=== PATIENT | female | born 1950 | race Caucasian/White ===

== ENCOUNTER 2017-10-01 09:37 | Inpatient (IN) | payer OTHER ==
[~2017-10-01 09:37] MED LIST: LIDOCAINE 2% (SDV) 5 ML INJ; PROPOFOL 200 MG INJ
[2017-10-01] MEDS ORDERED: ROPIVACAINE 0.5 % 30 ML VIAL (09:57)
[2017-10-01] MEDS ORDERED: MIDAZOLAM 1 MG/ML 2 ML INJ (10:00)
[2017-10-01] MEDS ORDERED: CEFAZOLIN 1 GM INJ (10:05)
[2017-10-01] MEDS ORDERED: ROCURONIUM 50 MG INJ (10:05)
[2017-10-01] MEDS: LACTATED RINGER'S 1,000 ML IV* (12:00)
[2017-10-01] MEDS: TRANEXAMIC ACID 1,000 MG in DEXTROSE 5% 100 ML IV ×2 (12:25→13:08)
[2017-10-01] MEDS: CEFAZOLIN 2 GM/50 ML (PMX) 50 ML IVPB (12:45)
[2017-10-01] MEDS ORDERED: BETHANECHOL 25 MG TAB PO (13:00)
[2017-10-01] MEDS ORDERED: ONDANSETRON 4 MG INJ IV (13:00)
[2017-10-01] MEDS ORDERED: NA PHOSPHATE/BIPHOS 133 ML ENEMA PR (13:00)
[2017-10-01] MEDS ORDERED: HYDROCODONE/APAP (5/325) TAB PO (13:00)
[2017-10-01] MEDS ORDERED: MAGNESIUM HYDROXIDE 30ML CUP PO (13:00)
[2017-10-01] MEDS: CEFAZOLIN 1 GM/50 ML (PMX) 50 ML IVPB ×2 (13:00→21:10)
[2017-10-01] MEDS ORDERED: NACL 0.9% 3 ML SYG IV (13:00)
[2017-10-01] MEDS ORDERED: BISACODYL 10 MG SUPP PR (13:00)
[2017-10-01] MEDS: BACITRACIN 50000 UNITS INJ (13:05)
[2017-10-01] MEDS: POLYMYXIN B 500000 UNIT INJ (13:06)
[2017-10-01] MEDS ORDERED: SUGAMMADEX SODIUM 200 MG/2 ML VIAL IV (14:10)
[2017-10-01] MEDS ORDERED: ONDANSETRON 4 MG INJ (14:14)
[2017-10-01] MEDS ORDERED: DEXAMETHASONE 4 MG/ML 1 ML INJ (14:14)
[2017-10-01] MEDS ORDERED: METOCLOPRAMIDE 10 MG INJ IV (14:30)
[2017-10-01] MEDS ORDERED: HYDROmorphONE 1 MG/5 ML IV SYRINGE IV ×3 (14:30)
[2017-10-01] MEDS ORDERED: FENTAnyl 50 MCG/ML VIAL IV ×2 (14:30)
[2017-10-01] MEDS ORDERED: hydrALAzine 20 MG INJ IV (14:30)
[2017-10-01] MEDS ORDERED: EPHEDrine SULFATE 50 MG/5 ML SYG IV (14:30)
[2017-10-01] MEDS ORDERED: ALBUTEROL 0.083% (NEB) 2.5 MG/3 ML AMP HHN (14:30)
[2017-10-01] MEDS ORDERED: KETOROLAC 30 MG INJ IV (14:30)
[2017-10-01] MEDS ORDERED: LABETALOL HCL 20MG INJ IV (14:30)
[2017-10-01] MEDS: MEPERIDINE 25 MG INJ IV (15:19)
[2017-10-01] MEDS: ONDANSETRON 4 MG INJ IV (15:19)
[2017-10-01] MEDS: ASPIRIN (EC) 325 MG TAB PO (15:20)
[2017-10-01] MEDS: DIPHENHYDRAMINE 50 MG INJ IV (15:31)
[2017-10-01] MEDS: FENTAnyl 50 MCG/ML VIAL IV (15:31)
[2017-10-01 15:39] LABS: ADD MAN DIFF? NO
[2017-10-01 15:41] LABS: BASOPHIL # 0.1 10^3/ul (0.0-0.1); BASOPHILS % 0.6 % (0.0-2.0); EOSINOPHILS # 0.2 10^3/ul (0.0-0.5); EOSINOPHILS % 2.8 % (0.0-7.0); HEMATOCRIT 33.3 % (37.0-47.0); HEMOGLOBIN 10.9 g/dl (12.0-16.0); LYMPHOCYTES # 1.2 10^3/ul (0.8-2.9); LYMPHOCYTES % 14.9 % (15.0-51.0); MEAN CORPUSCULAR HEMOGLOBIN 30.2 pg (29.0-33.0); MEAN CORPUSCULAR HGB CONC 32.7 g/dl (32.0-37.0); MEAN CORPUSCULAR VOLUME 92.2 fl (82.0-101.0); MEAN PLATELET VOLUME 9.2 fl (7.4-10.4); MONOCYTE # 0.5 10^3/ul (0.3-0.9); MONOCYTES % 6.3 % (0.0-11.0); NEUTROPHILS % 74.9 % (39.0-77.0); PLATELET COUNT 178 10^3/UL (140-415); RED BLOOD COUNT 3.61 10^6/ul (4.20-5.40); RED CELL DISTRIBUTION WIDTH 12.9 % (11.5-14.5)
[2017-10-01] MEDS ORDERED: SUMATRIPTAN 50 MG TAB PO (16:30)
[2017-10-01] MEDS: SENNA/DOCUSATE NA (8.6MG/50MG) TAB PO (21:14)
[2017-10-01] MEDS: FERROUS FUMARATE (SR) TAB PO (21:14)
[2017-10-02] MEDS: KETOROLAC 30 MG INJ IV ×3 (00:36→17:05)
[2017-10-02] MEDS: CEFAZOLIN 1 GM/50 ML (PMX) 50 ML IVPB (04:49)
[2017-10-02 05:09] LABS: ADD MAN DIFF? NO
[2017-10-02 05:13] LABS: WHITE BLOOD COUNT 11.6 10^3/ul (4.8-10.8)
[2017-10-02 05:13] LABS: BASOPHILS % 0.2 % (0.0-2.0); HEMOGLOBIN 11.2 g/dl (12.0-16.0); LYMPHOCYTES # 1.2 10^3/ul (0.8-2.9); LYMPHOCYTES % 10.5 % (15.0-51.0); MEAN CORPUSCULAR HEMOGLOBIN 30.4 pg (29.0-33.0); MEAN CORPUSCULAR HGB CONC 32.9 g/dl (32.0-37.0); MEAN CORPUSCULAR VOLUME 92.1 fl (82.0-101.0); MEAN PLATELET VOLUME 9.4 fl (7.4-10.4); MONOCYTE # 0.9 10^3/ul (0.3-0.9); MONOCYTES % 7.5 % (0.0-11.0); NEUTROPHIL # 9.4 10^3/ul (1.6-7.5); NEUTROPHILS % 81.5 % (39.0-77.0); PLATELET COUNT 244 10^3/UL (140-415); RED BLOOD COUNT 3.69 10^6/ul (4.20-5.40); RED CELL DISTRIBUTION WIDTH 12.8 % (11.5-14.5)
[2017-10-02 05:47] LABS: ANION GAP 15 (8-16); BLOOD UREA NITROGEN 20 mg/dl (7-20); CALCIUM 8.9 mg/dl (8.4-10.2); CARBON DIOXIDE 28 mmol/L (21-31); CHLORIDE 102 mmol/L (97-110); CREATININE 0.71 mg/dl (0.44-1.00); GLUCOSE 143 mg/dl (70-220); MAGNESIUM 2.1 mg/dl (1.7-2.5); POTASSIUM 4.3 mmol/L (3.5-5.1); SODIUM 141 mmol/L (135-144)
[2017-10-02 07:22] LABS: HEMOGLOBIN A1C 5.3 % (0-5.9)
[2017-10-02] MEDS: FERROUS FUMARATE (SR) TAB PO ×2 (08:56→20:18)
[2017-10-02] MEDS: HYDROCHLOROTHIAZIDE 12.5 MG CAP PO (08:56)
[2017-10-02] MEDS: SENNA/DOCUSATE NA (8.6MG/50MG) TAB PO ×3 (08:56→20:18)
[2017-10-02] MEDS: DULOXETINE 30 MG CAP DR PO (08:56)
[2017-10-02] MEDS: ASPIRIN (EC) 325 MG TAB PO (08:57)
[2017-10-02] MEDS: FLUOXETINE 20 MG CAP PO (08:57)
[2017-10-02] MEDS: HYDROCODONE/APAP (5/325) TAB PO (08:59)
[2017-10-02] MEDS: morphine 2 MG INJ IV ×2 (10:01→13:33)
[2017-10-02] MEDS: HYDROCODONE/APAP (10/325) TAB PO ×3 (11:45→19:46)
[2017-10-02] MEDS: morphine LIQ (10 MG/5 ML) CUP PO (21:52)
[2017-10-02] MEDS: DIPHENHYDRAMINE 50 MG INJ IV (21:53)
[2017-10-03] MEDS: HYDROCODONE/APAP (10/325) TAB PO ×3 (02:34→13:07)
[2017-10-03] MEDS: morphine LIQ (10 MG/5 ML) CUP PO ×2 (04:23→10:02)
[2017-10-03 05:10] LABS: ADD MAN DIFF? NO
[2017-10-03 05:26] LABS: BASOPHILS % 0.6 % (0.0-2.0); EOSINOPHILS # 0.3 10^3/ul (0.0-0.5); EOSINOPHILS % 3.8 % (0.0-7.0); HEMATOCRIT 30.8 % (37.0-47.0); LYMPHOCYTES % 29.5 % (15.0-51.0); MEAN CORPUSCULAR HEMOGLOBIN 29.9 pg (29.0-33.0); MEAN CORPUSCULAR HGB CONC 32.5 g/dl (32.0-37.0); MEAN CORPUSCULAR VOLUME 92.2 fl (82.0-101.0); MEAN PLATELET VOLUME 9.4 fl (7.4-10.4); MONOCYTE # 0.8 10^3/ul (0.3-0.9); MONOCYTES % 11.6 % (0.0-11.0); NEUTROPHIL # 3.6 10^3/ul (1.6-7.5); NEUTROPHILS % 54.2 % (39.0-77.0); PLATELET COUNT 170 10^3/UL (140-415); RED BLOOD COUNT 3.34 10^6/ul (4.20-5.40); RED CELL DISTRIBUTION WIDTH 12.9 % (11.5-14.5)
[2017-10-03 05:26] LABS: WHITE BLOOD COUNT 6.6 10^3/ul (4.8-10.8)
[2017-10-03 05:52] LABS: ANION GAP 13 (8-16); BLOOD UREA NITROGEN 19 mg/dl (7-20); CALCIUM 8.1 mg/dl (8.4-10.2); CARBON DIOXIDE 29 mmol/L (21-31); CHLORIDE 103 mmol/L (97-110); CREATININE 0.64 mg/dl (0.44-1.00); GLUCOSE 94 mg/dl (70-220); POTASSIUM 3.6 mmol/L (3.5-5.1); SODIUM 141 mmol/L (135-144)
[2017-10-03] MEDS: FLUOXETINE 20 MG CAP PO (09:11)
[2017-10-03] MEDS: DULOXETINE 30 MG CAP DR PO (09:11)
[2017-10-03] MEDS: ASPIRIN (EC) 325 MG TAB PO (09:11)
[2017-10-03] MEDS: SENNA/DOCUSATE NA (8.6MG/50MG) TAB PO (09:12)
[2017-10-03] MEDS: FERROUS FUMARATE (SR) TAB PO (09:12)
[2017-10-03] MEDS: HYDROCHLOROTHIAZIDE 12.5 MG CAP PO (09:12)
[2017-10-03] MEDS ORDERED: MAGNESIUM HYDROXIDE 30ML CUP PO (21:00)
== END 2017-10-03 17:15 | disposition home health service (06) | DRG 483 ==
LOC: REC 09:37 → MS1 17:45
PROVIDERS: Orthopaedic Surgery
PROC: 0RRK0JZ Replacement of Left Shoulder Joint with Synthetic Substitute, Open Approach (ICD-10-PCS; principal; 2017-10-01 12:00)
DX: M19.012 Primary osteoarthritis, left shoulder (principal); Z68.44 Body mass index [BMI] 60.0-69.9, adult; I10 Essential (primary) hypertension; E66.01 Morbid (severe) obesity due to excess calories
CPT/HCPCS: 71045; 80048; 83036; 83735; 84100; 85025; 86850; 86900; 86901; 87081; 88304; 88311; 97161; 97165